=== PATIENT | female | born 1995 | race Caucasian/White ===

== ENCOUNTER → 2019-09-01 00:44 | Observation (INO) | END | disposition home or self-care (01) | LOC: 1NENULAB | PROVIDERS: ADMIT Advanced Practice Midwife; ATTEND Advanced Practice Midwife ==

== ENCOUNTER 2019-09-01 20:06 | Inpatient (IN) ==
[~2019-09-01 20:06] MED LIST: *HR* Nalbuphine 10 MG/ML AMPUL IVP PRN; Betamethasone Acet/SodPhos 30 MG/5 ML VIAL IM SCH; Famotidine 20 MG/2 ML VIAL IVP PRN; Lidocaine 1% 20 ML MDV INFILT PRN; Metoclopramide 10 MG/2 ML VIAL IVP PRN; Naloxone 0.4 MG/ML INJ IVP PRN; Ondansetron 4 MG/2 ML VIAL IVP PRN; Penicillin G Potassium 5,000,000 UNIT in 0.9 % Sodium Chloride Mini Bag 100 ML IVPB ONE; Ringers Solution, Lactated 1,000 ML ONE
[2019-09-01] MEDS ORDERED: Lidocaine -MPF 1% 2 ML VIAL ONE (20:12)
[2019-09-01] MEDS ORDERED: Epidural Premix (fent/bupiv) 110 ML EP SCH (20:15)
[2019-09-01] MEDS ORDERED: Oxytocin 20 units/ LR 1000 mL 20 UNIT/1,000 ML BAG IVC SCH (20:15)
[2019-09-01] MEDS ORDERED: Ringers Solution, Lactated 1,000 ML IVC SCH (20:15)
[2019-09-01 20:48] LABS: Basophils % 0.2 %; Eosinophils % 0.2 %; Hematocrit 36.1 % (35.3-44.9); Hemoglobin 11.8 g/dL (11.5-15.4); Immature Granulocytes % 0.4 % (0-4); Lymphocytes % 12.2 %; Mean Corpuscular HGB Conc 32.7 g/dL (31.6-35.5); Mean Corpuscular Hemoglobin 26.7 pg (28.0-33.3); Mean Corpuscular Volume 81.7 fL (83.0-100.0); Mean Platelet Volume 11.5 fL (9.4-12.4); Monocytes % 5.8 %; Neutrophils # 13.6 K/mcL (1.6-8.9); Platelet Count 258 K/mcL (140-400); Red Blood Count 4.42 M/mcL (3.82-4.97); Red Cell Distribution Width 15.7 % (11.5-14.5); Segmented Neutrophils % 81.2 %; White Blood Count 16.8 K/mcL (4.3-11.1)
[2019-09-01 20:57] LABS: Amphetamine Screen,Urine Negative ng/mL (Cutoff=1000); Barbiturate Screen,Urine Negative ng/mL (Cutoff=200); Benzodiazepines Screen,Urine Negative ng/mL (Cutoff=200); Cannabinoid Screen,Urine Negative ng/mL (Cutoff = 50); Cocaine Screen,Urine Negative ng/mL (Cutoff= 300); Opiate Screen,Urine Negative ng/mL (Cutoff=300); Phencyclidine Screen,Urine Negative ng/mL (Cutoff=25)
[2019-09-01 21:24] LABS: Creatinine,Urine 88 mg/dL; Protein/Creatinine Ratio,Urine 0.35 mg/mg (0.00-0.20)
[2019-09-01 21:29] LABS: Alanine Aminotransferase 11 Units/L (7-52); Aspartate Amino Transferase 13 Units/L (13-39); BUN/Creatinine Ratio 12 (6-26); Blood Urea Nitrogen 8 mg/dL (6-20); Uric Acid 5.8 mg/dL (2.3-7.6); eGFR For African Americans > 60 (> 60); eGFR For Non-African Americans > 60 (> 60)
[2019-09-01 22:12] LABS: Lactate Dehydrogenase 188 Units/L (140-271)
[2019-09-01] MEDS ORDERED: *HR* Ropivacaine/PF 0.5% 20 ML VIAL ONE (22:47)
[2019-09-02] MEDS ORDERED: Penicillin G Potassium 2,500,000 UNIT in 0.9 % Sodium Chloride 100 ML IVPB SCH
[2019-09-02] MEDS ORDERED: 0.9 % Sodium Chloride 250 ML IVC SCH (02:15)
[2019-09-02 03:07] LABS: Basophils % 0.2 %; Eosinophils % 0.1 %; Hematocrit 33.1 % (35.3-44.9); Hemoglobin 10.8 g/dL (11.5-15.4); Immature Granulocytes % 0.6 % (0-4); Lymphocytes # 2.5 K/mcL (0.6-4.6); Lymphocytes % 13.5 %; Mean Corpuscular HGB Conc 32.6 g/dL (31.6-35.5); Mean Corpuscular Hemoglobin 26.8 pg (28.0-33.3); Mean Corpuscular Volume 82.1 fL (83.0-100.0); Mean Platelet Volume 11.6 fL (9.4-12.4); Monocytes # 1.2 K/mcL (0.0-1.3); Monocytes % 6.4 %; Neutrophils # 14.7 K/mcL (1.6-8.9); Platelet Count 269 K/mcL (140-400); Red Blood Count 4.03 M/mcL (3.82-4.97); Red Cell Distribution Width 15.5 % (11.5-14.5); Segmented Neutrophils % 79.2 %; White Blood Count 18.5 K/mcL (4.3-11.1)
[2019-09-02] MEDS ORDERED: Diphenoxylate/Atropine 1 TAB TABLET PO ONE (03:13)
[2019-09-02] MEDS ORDERED: Acetaminophen 325 MG TABLET PO PRN (06:02)
[2019-09-02] MEDS ORDERED: Oxytocin 20 units/ LR 1000 mL 20 UNIT/1,000 ML BAG IVC SCH (06:02)
[2019-09-02] MEDS ORDERED: Lanolin 7 G OINT...G. TP PRN (06:02)
[2019-09-02] MEDS ORDERED: Benzocaine/Menthol 56 GM AEROSOL SPRAY TP PRN (06:02)
[2019-09-02] MEDS ORDERED: Rho Immune Globulin 1,500 UNIT SYRINGE IM PRN (06:02)
[2019-09-02] MEDS: Prenatal Vit/FA 1 EACH TABLET PO SCH (07:55)
[2019-09-02] MEDS: Ibuprofen 600 MG TABLET PO PRN ×2 (07:55→21:27)
[2019-09-02] MEDS ORDERED: Methylergonovine 0.2 MG/ML AMPUL IM ONE (08:06)
[2019-09-02] MEDS ORDERED: miSOPROStoL 100 MCG TABLET PO ONE (08:06)
[2019-09-02 08:43] LABS: Basophils % 0.1 %; Hematocrit 26.9 % (35.3-44.9); Immature Granulocytes % 0.5 % (0-4); Lymphocytes # 2.5 K/mcL (0.6-4.6); Lymphocytes % 12.5 %; Mean Corpuscular HGB Conc 32.7 g/dL (31.6-35.5); Mean Corpuscular Hemoglobin 27.4 pg (28.0-33.3); Mean Corpuscular Volume 83.8 fL (83.0-100.0); Mean Platelet Volume 11.3 fL (9.4-12.4); Monocytes # 1.2 K/mcL (0.0-1.3); Monocytes % 5.8 %; Neutrophils # 16.4 K/mcL (1.6-8.9); Platelet Count 200 K/mcL (140-400); Red Blood Count 3.21 M/mcL (3.82-4.97); Red Cell Distribution Width 15.6 % (11.5-14.5); Segmented Neutrophils % 81.1 %; White Blood Count 20.2 K/mcL (4.3-11.1)
[2019-09-02 08:53] LABS: Hemoglobin 8.8 g/dL (11.5-15.4)
[2019-09-03 07:27] LABS: Hematocrit 24.7 % (35.3-44.9); Hemoglobin 7.9 g/dL (11.5-15.4); Mean Corpuscular Hemoglobin 26.7 pg (28.0-33.3); Mean Corpuscular Volume 83.4 fL (83.0-100.0); Mean Platelet Volume 11.8 fL (9.4-12.4); Platelet Count 157 K/mcL (140-400); Red Blood Count 2.96 M/mcL (3.82-4.97); Red Cell Distribution Width 16.1 % (11.5-14.5)
[2019-09-03 07:28] LABS: White Blood Count 9.2 K/mcL (4.3-11.1)
[2019-09-03 07:56] VITALS: BP 120/78
[2019-09-03] MEDS: Prenatal Vit/FA 1 EACH TABLET PO SCH (08:57)
== END 2019-09-03 13:20 | disposition home or self-care (01) | DRG 768 ==
LOC: 1NENULAB → 1NENUOBS 09-02 05:46
PROVIDERS: ADMIT Registered Nurse; ATTEND Registered Nurse